=== PATIENT | female | born 1955 | race American Indian/Alaskan Native ===

== ENCOUNTER 2016-11-04 16:31 | Emergency (ER) | payer BC ==
[2016-11-04 16:32] VITALS: BMI 29.1
== END 2016-11-04 17:14 | disposition left against medical advice (07) ==
LOC: ED 16:31
DX: Z02.89 Encounter for other administrative examinations (principal); R21 Rash and other nonspecific skin eruption

== ENCOUNTER 2017-04-25 20:08 | Emergency (ER) | payer BC ==
[2017-04-25 20:26] VITALS: BMI 29.8
[2017-04-25 20:28] VITALS: RESP 18
[2017-04-25] MEDS ORDERED: Lidocaine 1% Inj (20ml) ONE (21:16)
[2017-04-25] MEDS ORDERED: TDAP Vaccine 0.5 mL Syr IM ONE (22:19)
--- NOTE | 2017-04-25 22:19 | ED PDOC ---
Arrival/HPI - General Chief Complaint: Finger,Hand,&Wrist Time Seen by Provider: 04/25/17 21:55 Historian: Patient - History of Present Illness Narrative History of Present Illness (Text): 04/25/17 22:10 61yr old females presents today with splinter in right 3rd finger. pt states that she was putting food away and hit the wooden cabinet and sustained a splinter underneath the nail of the right 3rd finger. pt unsure of last tetanus shot. pt c/o slight pain to splinter site. no fever/chills. incident occurred prior to arrival. denies any other complaints. Symptom Onset: Sudden Symptom Course: Unchanged Quality: Stabbing Severity Level: 1 Past Medical History - Provider Review Nursing Documentation Reviewed: Yes - Travel History Have you recently traveled outside [place] w/in the past 3 mons?: No - Infectious Disease Hx of Infectious Diseases: None - Tetanus Immunization Tetanus Immunization: Unknown - Past Medical History Past Medical History: Non-Contributing - Cardiac Hx Hypotension: Yes - Endocrine/Metabolic Hx Diabetes Mellitus Type 2: Yes Hx Hypothyroidism: Yes - Musculoskeletal/Rheumatological Hx Musculoskeletal Disorders: No - Gastrointestinal Other/Comment: gastric sleeve surgery - Genitourinary/Gynecological Hx Genitourinary Disorders: No - Psychiatric Hx Depression: No Hx Emotional Abuse: No Hx Physical Abuse: No Hx Substance Use: No - Past Surgical History Past Surgical History: Non-Contributing - Surgical History Other/Comment: gastric sleeve - Anesthesia Hx Anesthesia: Yes Hx Anesthesia Reactions: No Hx Malignant Hyperthermia: No - Suicidal Assessment Feels Threatened In Home Enviroment: No Family/Social History - Physician Review Nursing Documentation Reviewed: Yes Family/Social History: Unknown Family HX Smoking Status: Never Smoked Hx Alcohol Use: No Hx Substance Use: No Hx Substance Use Treatment: No Allergies/Home Meds Allergies/Adverse Reactions: Allergies shellfish derived Allergy (Verified 04/25/17 21:46) ANGIOEDEMA Home Medications: Home Meds Medication Instructions Recorded Confirmed Levothyroxine [Synthroid] 75 mcg PO DAILY 08/02/12 04/25/17 Atorvastatin Calcium [Lipitor] 20 mg PO DAILY 08/15/15 04/25/17 Cozaar 50 mg PO DAILY 08/15/15 04/25/17 Glumetza 1,000 mg PO BID 08/15/15 04/25/17 Repaglinide [Prandin] 1 mg PO BID 08/15/15 04/25/17 Review of Systems - Review of Systems Constitutional: absent: Fatigue, Fevers Respiratory: absent: SOB, Cough Cardiovascular: absent: Chest Pain, Palpitations Gastrointestinal: absent: Abdominal Pain, Nausea, Vomiting Musculoskeletal: Arthralgias Skin: Other (splinter in finger) Neurological: absent: Headache Physical Exam Vital Signs Reviewed: Yes Vital Signs Temp Pulse Resp BP Pulse Ox 04/25/17 20:27 98.3 F 99 H 18 136/64 99 Temperature: Afebrile Blood Pressure: Normal Pulse: Regular Respiratory Rate: Normal Appearance: Positive for: Well-Appearing, Non-Toxic, Comfortable Pain Distress: None Mental Status: Positive for: Alert and Oriented X 3 - Systems Exam Head: Present: Atraumatic Respiratory/Chest: Present: Clear to Auscultation Cardiovascular: Present: Regular Rate and Rhythm Upper Extremity: Present: Normal ROM, NORMAL PULSES, Tenderness, Neurovascularly Intact, Capillary Refill < 2s, Other (right 3rd finger; there is a small wooden splinter just under the distal aspect of the finger nail. ). No: Swelling, Erythema, Deformity Neurological: Present: GCS=15 Skin: Present: Warm, Dry Psychiatric: Present: Alert, Oriented x 3 Medical Decision Making ED Course and Treatment: 04/25/17 22:23 61yr old female with wooden splinter under right 3rd fingernail. tetanus updated keflex po procedure note; right 3rd finger using sterile technique; 0.1cc of lidocaine injected at the splinter site; using forceps splinter was removed; splinter intact. no active bleeding; pt tolerated procedure well. no complications. wound cleaned; bacitracin appled. pt advised to take abx 4 times daily x 5 days and f/u with pmd. advised keeping wound clean and dry and returning immediately if signs of infection develop. Patient verbalizes understanding of discharge instructions and need for immediate followup. all aspects of this case were discussed the attending of record. impression: foreign body, finger tylenol every 4 hours as needed for pain keflex; 1 capsule 4 times daily x 5 days keep wound clean and dry; apply bacitracin twice daily follow up with the primary care physician within the next 2 days return immediately if signs of infection develop; high fevers, increasing pain, swelling, redness or if purulent discharge develops. - Medication Orders Current Medication Orders: Discontinued Medications Cephalexin Monohydrate (Keflex) 500 mg PO STAT STA PRN Reason: Protocol Stop: 04/25/17 22:02 Lidocaine HCl (Lidocaine 1% (20ml)) Confirm Administered Dose 20 ml .ROUTE .[facility] Stop: 04/25/17 21:17 Disposition/Present on Arrival - Present on Arrival Any Indicators Present on Arrival: No History of DVT/PE: No History of Uncontrolled Diabetes: No Urinary Catheter: No History of Decub. Ulcer: No History Surgical Site Infection Following: None - Disposition Have Diagnosis and Disposition been Completed?: Yes Diagnosis: Foreign body finger Disposition: HOME/ ROUTINE Disposition Time: 22:08 Patient Plan: Discharge Patient Problems: Current Active Problems Problem Status Onset Foreign body finger Acute Condition: GOOD Additional Instructions: tylenol every 4 hours as needed for pain keflex; 1 capsule 4 times daily x 5 days keep wound clean and dry; apply bacitracin twice daily follow up with the primary care physician within the next 2 days return immediately if signs of infection develop; high fevers, increasing pain, swelling, redness or if purulent discharge develops. Prescriptions: Cephalexin [Keflex] 500 mg PO QID #20 capsule Referrals: Cherrie Atkinson DO [Primary Care Provider] - Follow up with primary Forms: [facility] (Malagasy), WORK NOTE
[2017-04-25 22:30] VITALS: BP 140/38; PULSE 98; TEMP 98.4; O2SAT 100
== END 2017-04-25 22:32 | disposition home or self-care (01) ==
LOC: ED 20:08
DX: S60.452A Superficial foreign body of right middle finger, initial encounter (principal); W22.03XA Walked into furniture, initial encounter; Y93.G1 Activity, food preparation and clean up; Y92.89 Other specified places as the place of occurrence of the external cause; Z23 Encounter for immunization

== ENCOUNTER 2018-09-08 06:37 | Outpatient (CLI) | payer BC | END 2018-09-08 06:38 | disposition home or self-care (01) | LOC: CARDIO 06:37 ==

== ENCOUNTER 2018-09-12 14:06 | Outpatient (CLI) | payer BC | END 2018-09-12 14:07 | disposition home or self-care (01) | LOC: RAD 14:06 | DX: R07.9 Chest pain, unspecified (principal) ==